=== PATIENT | female | born 1980 | race Caucasian/White ===

== ENCOUNTER → 2016-08-15 | Outpatient (CLI) | payer BC ==
[~2016-08-15] MED LIST: ADVIN50/60 INH; BSP/10 PO; CETI10TA84 PO; CIPR-255 PO; CRY28 PO; ERGO1CAP41 PO; ESCI1TAB10 PO; FLUT0.15 NAE; IPRA1AER2 INH; LEVOXYL PO; MOME50SP5; PHEN1CAP PO; PRT/40 PO; ROSU10TA24 PO; SNG10 PO; SULF800T23 PO
== END | disposition home or self-care (01) ==
LOC: C.PAPS 11:37
PROVIDERS: ATTEND Obstetrics & Gynecology
DX: Z01.419 Encounter for gynecological examination (general) (routine) without abnormal findings (principal)

== ENCOUNTER 2016-12-08 13:08 | Emergency (ER) | payer BC ==
[~2016-12-08] VITALS: Ht 172.7 cm; Wt 113.0 kg
[~2016-12-08 13:08] MED LIST changes: -ADVIN50/60 INH; -BSP/10 PO; -CETI10TA84 PO; -CIPR-255 PO; -CRY28 PO; -ERGO1CAP41 PO; -ESCI1TAB10 PO; -FLUT0.15 NAE; -IPRA1AER2 INH; -LEVOXYL PO; -PRT/40 PO; -ROSU10TA24 PO; -SNG10 PO; -SULF800T23 PO
[2016-12-08 13:17] VITALS: TEMP 36.7; Ht 172.7 cm; Wt 113.0 kg
[2016-12-08] MEDS ORDERED: ONDANSETRON INJ 2 MG/ML 2 ML VIAL IV STA (14:11)
[2016-12-08] MEDS ORDERED: KETOROLAC TROMETHAMINE 30 MG/ML VIAL IV STA (14:11)
[2016-12-08] MEDS ORDERED: SODIUM CHLORIDE 0.9% 1000ML 500 ML IV STA (14:11)
[2016-12-08 14:47] LABS: BASO % 0.4 %; BASO ABS # 0.03 K/uL (0-0.2); COMPLETE YES; EOS % 1.4 %; HEMATOCRIT 40.5 % (37-47); IG% 0.2 %; LYMPH % 21.6 %; LYMPH ABS # 1.74 K/uL (1.2-3.4); MEAN CELL VOLUME 87.9 fL (80-100); MEAN CORPUSCULAR HGB CONC 31.9 g/dl (32-36); MEAN PLATELET VOLUME 8.7 fL (7.4-10.4); MONO % 8.6 %; NEUT % 67.8 %; PLATELET COUNT 395 K/uL (130-400); RED BLOOD COUNT 4.61 M/uL (4.2-5.4); WHITE BLOOD COUNT 8.05 K/uL (4.8-10.8)
--- NOTE | 2016-12-08 14:49 | DIAGNOSTIC IMAGING REPORT ---
CHEST ONE VIEW PORTABLE CLINICAL HISTORY: ABDOMINAL PAIN/GI COMPARISON STUDY: No previous studies for comparison. FINDINGS: The bones soft tissues and hemidiaphragms are normal. The cardiomediastinal silhouette is normal. The lungs are clear. The pulmonary vasculature is normal. IMPRESSION: Negative chest. Electronically signed by: Manjit Armas M.D. 12/08/2016 2:47 PM Dictated Date/Time: 12/08/2016 2:47 PM
[2016-12-08 14:53] LABS: URINE APPEARANCE CLOUDY (CLEAR); URINE COLOR DK YELLOW; URINE EPITHELIAL CELL AUTO >30 /lpf (0-5); URINE NITRITE NEG (NEG); URINE SPECIFIC GRAVITY 1.032 (1.000-1.030); UROBILINOGEN NEG (NEG); ZZUR CULT IF INDIC CLEAN CATCH YES
[2016-12-08 15:01] LABS: MANUAL MICROSCOPIC REQUIRED? NO; REVIEW REQ? YES; URINE BILIRUBIN NEG (NEG)
[2016-12-08 15:09] LABS: BUN/CREATININE RATIO 9.6 (10-20); CALCIUM 8.7 mg/dl (8.5-10.1); CREATININE 1.1 mg/dl (0.60-1.20); POTASSIUM 3.3 mmol/L (3.5-5.1)
[2016-12-08 15:12] LABS: ALB/GLOB RATIO 0.8 (0.9-2)
[2016-12-08 15:13] LABS: PREG INTERNAL NEGATIVE QC NEG CLEAR BACKGROUND; PREG INTERNAL POSITIVE QC POS CONTROL LINE
[2016-12-08] MEDS ORDERED: FLUT0.15 NAE (15:23)
[2016-12-08] MEDS ORDERED: LEVOXYL PO (15:23)
[2016-12-08] MEDS ORDERED: ROSU10TA24 PO (15:26)
[2016-12-08] MEDS ORDERED: CRY28 PO (15:26)
[2016-12-08] MEDS ORDERED: SNG10 PO (15:26)
[2016-12-08] MEDS ORDERED: ADVIN50/60 INH (15:26)
[2016-12-08] MEDS ORDERED: ERGO500011 PO (15:26)
[2016-12-08] MEDS ORDERED: BSP/10 PO (15:26)
--- NOTE | 2016-12-08 16:01 | DIAGNOSTIC IMAGING REPORT ---
RENAL ULTRASOUND HISTORY: Flank pain kidney pain right COMPARISON: None. FINDINGS: Right kidney: Maximum dimension 10.8 cm. Normal corticomedullary differentiation and cortical thickness. Left kidney: Maximum dimension 9.9 cm. Normal corticomedullary differentiation and cortical thickness. Bladder: No bladder wall thickening. The bilateral ureteral jets were identified. IMPRESSION: Normal renal ultrasound. Electronically signed by: Manjit Armas M.D. 12/08/2016 3:59 PM Dictated Date/Time: 12/08/2016 3:59 PM
--- NOTE | 2016-12-08 16:02 | DIAGNOSTIC IMAGING REPORT ---
ULTRASOUND OF THE PELVIS CLINICAL HISTORY: Right pelvic pain. COMPARISON STUDY: Pelvic ultrasound dated 08/15/2014. TECHNIQUE: Real-time, grayscale, and color flow sonography of the pelvis is performed both transabdominally and endovaginally. Images are reviewed in the transverse and longitudinal planes. FINDINGS: Uterus: The retroverted uterus is normal in size and echotexture, measuring 8.1 x 5.5 x 4.9 cm. Trace fluid is present within the endocervical canal. A Nabothian cyst is incidentally noted. Endometrium: The endometrium is normal in appearance, and the endometrial stripe is normal in thickness measuring up to 0.1 cm. Ovaries: The ovaries were not visualized on the transabdominal or endovaginal imaging. Pelvis: There is no free fluid in the cul-de-sac. No concerning adnexal lesion is seen. IMPRESSION: 1. The retroverted uterus is normal in appearance. 2. The ovaries were not visualized. No adnexal lesion is seen. Electronically signed by: Zhou Ridley M.D. 12/08/2016 4:01 PM Dictated Date/Time: 12/08/2016 3:59 PM
[2016-12-08] MEDS ORDERED: CIPROFLOXACIN 500 MG TAB PO STA (16:07)
[2016-12-08] MEDS ORDERED: CIPR-255 PO (16:52)
[2016-12-08] MEDS ORDERED: ALBUTEROL HFA 8 GM INHALER INH ONE (17:15)
[2016-12-08] MEDS ORDERED: SULF800T23 PO (17:16)
[2016-12-08 17:31] VITALS: BP 120/60
[2016-12-08 17:43] VITALS: PULSE 85; O2SAT 100
--- NOTE | 2016-12-08 17:48 | EMERGENCY ROOM VISIT NOTE ---
History Report prepared by Emilie: Javier Zhang Under the Supervision of: Dr. Zhou Ware M.D. First contact with patient: 14:07 Chief Complaint: ABDOMINAL PAIN Stated Complaint: PAIN ON RT SIDE-RADIATES TO BACK W/CHEST TIGHTNESS History of Present Illness The patient is a 36 year old female who presents to the Emergency Room with complaints of worsening "stabbing" right groin pain beginning three days ago. She states that her pain has begun to move into her right lower back and right lower abdomen. She has a history of kidney stones, asthma, endometriosis, ovarian cysts and kidney infections. The patient also complains of diffuse itchiness, shortness of breath and chest "tightness". She states that her pain has been worsening each time she eats. She rates her pain as a 7/10 in severity. The patient denies any diarrhea, fever, cough, urinary symptoms, or vomiting. She has a history of similar symptoms, and was told by her PCP that she likely had "the start of appendicitis", but received no intervention at the time. She has a history of a cholecystectomy. Source of History: patient Onset: Three days ago Position: other (right groin) Symptom Intensity: 7/10 Quality: stabbing Timing: worsening Modifying Factors (Worsening): eating Associated Symptoms: + chest pain ("tightness"), + SOB, + abdominal pain ( right lower), + back pain (right lower), No fevers, No cough, No vomiting, No diarrhea, No urinary symptoms Note: The patient also complains of diffuse itchiness. Review of Systems See HPI for pertinent positives & negatives. A total of 10 systems reviewed and were otherwise negative. Past Medical & Surgical Medical Problems: (1) Abnormal uterine bleeding (AUB) (2) Anemia (3) Asthma (4) Endometriosis (5) Kidney infection (6) Kidney stone (7) Ovarian cyst Family History No pertinent family history stated. Social History Smoking Status: Never Smoker Housing Status: lives with family Current/Historical Medications Scheduled Buspirone HCl (Buspirone HCl), 10 MG PO DAILY Cetirizine (Zyrtec), 10 MG PO DAILY Ciprofloxacin Hcl (Cipro), 500 MG PO BID Ergocalciferol (Vitamin D 66992 Unit), 1 CAP PO MONTHLY Escitalopram Oxalate (Lexapro), 20 MG PO DAILY Ethinyl Estradiol/Norgestrel (Cryselle-28), 1 TAB PO DAILY Fluticasone Prop/Salmeterol (Advair Diskus 500/50 60 Dose), 1 PUFF INH BID Fluticasone Propionate (Nasal) (Flonase Allergy Relief), 1 SPRAY LANEY BID Montelukast Sod (Montelukast Sodium), 10 MG PO DAILY Pantoprazole (Pantoprazole Sodium), 40 MG PO DAILY Rosuvastatin Calcium (Rosuvastatin Calcium), 10 MG PO DAILY Sulfa/Trimethoprim (Bactrim Ds 800MG/160MG), 1 TAB PO BID [Levoxyl], 50 MCG PO DAILY Scheduled PRN Ipratropium-Albuterol (Combivent Respimat), 1 PUFFS INH QID PRN for Wheezing Allergies Coded Allergies: Metoclopramide (Verified Allergy, Intermediate, anxious, 08/15/14) Acetaminophen (Verified Allergy, Unknown, throat swelling, 08/15/14) Amoxicillin (Verified Allergy, Unknown, throat swelling, 08/15/14) Hydrocodone (Verified Allergy, Unknown, throat swelling, 08/15/14) Morphine (Verified Allergy, Unknown, anxious,throat swelling,hives, ) Physical Exam Vital Signs Date Time Temp Pulse Resp B/P (MAP) Pulse Ox O2 Delivery O2 Flow Rate FiO2 12/08/16 17:43 85 100 12/08/16 17:31 120/60 12/08/16 17:28 84 20 100 12/08/16 17:13 89 24 97 12/08/16 17:01 104/78 12/08/16 16:58 80 19 12/08/16 16:43 92 18 12/08/16 16:31 104/64 12/08/16 16:28 86 17 12/08/16 16:13 82 22 99 12/08/16 16:01 122/76 12/08/16 15:59 115/80 12/08/16 15:14 79 18 110/71 100 Room Air 12/08/16 15:13 80 28 100 12/08/16 15:08 78 21 100 12/08/16 15:01 110/71 12/08/16 15:00 78 12/08/16 14:50 122/78 12/08/16 13:17 36.7 93 18 138/75 99 Room Air Physical Exam GENERAL: Patient is in no acute distress. HEENT: No acute trauma, normocephalic atraumatic, mucous membranes moist, no nasal congestion, no scleral icterus. NECK: No stridor, no adenopathy, no meningismus, trachea is midline. LUNGS: Clear to auscultation bilaterally, no wheeze, no rhonchi, breath sounds equal. HEART: Without murmurs gallops or rubs, regular rate and rhythm. ABDOMEN: Soft, tender along the entire right side, bowel sounds positive, no hernias, no peritonitis. BACK: Right flank discomfort with percussion. EXTREMITIES: No cyanosis or edema, full range of motion of all the joints without pain or difficulty, no signs for acute trauma. NEUROLOGIC: Oriented x 3, no acute motor or sensory deficits, no focal weakness. SKIN: No rash, no jaundice, no diaphoresis. Medical Decision & Procedures ER Provider Diagnostic Interpretation: Radiology results as stated below per my review and radiologist interpretation: RENAL ULTRASOUND FINDINGS: Right kidney: Maximum dimension 10.8 cm. Normal corticomedullary differentiation and cortical thickness. Left kidney: Maximum dimension 9.9 cm. Normal corticomedullary differentiation and cortical thickness. Bladder: No bladder wall thickening. The bilateral ureteral jets were identified. IMPRESSION: Normal renal ultrasound. Electronically signed by: Manjit Armas M.D. ULTRASOUND OF THE PELVIS FINDINGS: Uterus: The retroverted uterus is normal in size and echotexture, measuring 8.1 x 5.5 x 4.9 cm. Trace fluid is present within the endocervical canal. A Nabothian cyst is incidentally noted. Endometrium: The endometrium is normal in appearance, and the endometrial stripe is normal in thickness measuring up to 0.1 cm. Ovaries: The ovaries were not visualized on the transabdominal or endovaginal imaging. Pelvis: There is no free fluid in the cul-de-sac. No concerning adnexal lesion is seen. IMPRESSION: 1. The retroverted uterus is normal in appearance. 2. The ovaries were not visualized. No adnexal lesion is seen. Electronically signed by: Zhou Ridley M.D. ULTRASOUND OF THE PELVIS FINDINGS: Uterus: The retroverted uterus is normal in size and echotexture, measuring 8.1 x 5.5 x 4.9 cm. Trace fluid is present within the endocervical canal. A Nabothian cyst is incidentally noted. Endometrium: The endometrium is normal in appearance, and the endometrial stripe is normal in thickness measuring up to 0.1 cm. Ovaries: The ovaries were not visualized on the transabdominal or endovaginal imaging. Pelvis: There is no free fluid in the cul-de-sac. No concerning adnexal lesion is seen. IMPRESSION: 1. The retroverted uterus is normal in appearance. 2. The ovaries were not visualized. No adnexal lesion is seen. Electronically signed by: Zhou Ridley M.D. CHEST ONE VIEW PORTABLE FINDINGS: The bones soft tissues and hemidiaphragms are normal. The cardiomediastinal silhouette is normal. The lungs are clear. The pulmonary vasculature is normal. IMPRESSION: Negative chest. Electronically signed by: Manjit Armas M.D. Laboratory Results 12/08/16 14:30 Red Blood Count 4.61, Mean Corpuscular Volume 87.9, Mean Corpuscular Hemoglobin 28.0, Mean Corpuscular Hemoglobin Concent 31.9, Mean Platelet Volume 8.7, Neutrophils (%) (Auto) 67.8, Lymphocytes (%) (Auto) 21.6, Monocytes (%) (Auto) 8.6, Eosinophils (%) (Auto) 1.4, Basophils (%) (Auto) 0.4, Neutrophils # (Auto) 5.46, Lymphocytes # (Auto) 1.74, Monocytes # (Auto) 0.69, Eosinophils # (Auto) 0.11, Basophils # (Auto) 0.03 12/08/16 14:30 Test 12/08/16 14:30 White Blood Count 8.05 K/uL (4.8-10.8) Red Blood Count 4.61 M/uL (4.2-5.4) Hemoglobin 12.9 g/dL (12.0-16.0) Hematocrit 40.5 % (37-47) Mean Corpuscular Volume 87.9 fL (80-100) Mean Corpuscular Hemoglobin 28.0 pg (25-34) Mean Corpuscular Hemoglobin Concent 31.9 g/dl (32-36) Platelet Count 395 K/uL (130-400) Mean Platelet Volume 8.7 fL (7.4-10.4) Neutrophils (%) (Auto) 67.8 % Lymphocytes (%) (Auto) 21.6 % Monocytes (%) (Auto) 8.6 % Eosinophils (%) (Auto) 1.4 % Basophils (%) (Auto) 0.4 % Neutrophils # (Auto) 5.46 K/uL (1.4-6.5) Lymphocytes # (Auto) 1.74 K/uL (1.2-3.4) Monocytes # (Auto) 0.69 K/uL (0.11-0.59) Eosinophils # (Auto) 0.11 K/uL (0-0.5) Basophils # (Auto) 0.03 K/uL (0-0.2) RDW Standard Deviation 43.9 fL (36.4-46.3) RDW Coefficient of Variation 13.8 % (11.5-14.5) Immature Granulocyte % (Auto) 0.2 % Immature Granulocyte # (Auto) 0.02 K/uL (0.00-0.02) Urine Color DK YELLOW Urine Appearance CLOUDY (CLEAR) Urine pH 6.0 (4.5-7.5) Urine Specific [place] 1.032 (1.000-1.030) Urine Protein NEG (NEG) Urine Glucose (UA) NEG (NEG) Urine Ketones TRACE (NEG) Urine Occult Blood NEG (NEG) Urine Nitrite NEG (NEG) Urine Bilirubin NEG (NEG) Urine Urobilinogen NEG (NEG) Urine Leukocyte Esterase MODERATE (NEG) Urine WBC (Auto) 10-30 /hpf (0-5) Urine RBC (Auto) 0-4 /hpf (0-4) Urine Hyaline Casts (Auto) 0 /lpf (0-5) Urine Epithelial Cells (Auto) >30 /lpf (0-5) Urine Bacteria (Auto) 2+ (NEG) Urine Renal Epithelial Cells /lpf (0-5) Urine Crystals CALCIUM OXALATE (NONE Urine Pathogenic Casts /lpf (0) Anion Gap 8.0 mmol/L (3-11) Est Creatinine Clear Calc Drug Dose 94.1 ml/min Estimated GFR () 75.3 Estimated GFR (Non- 65.0 BUN/Creatinine Ratio 9.6 (10-20) Calcium Level 8.7 mg/dl (8.5-10.1) Total Bilirubin 0.3 mg/dl (0.2-1) Aspartate Amino Transf (AST/SGOT) 18 U/L (15-37) Alanine Aminotransferase (ALT/SGPT) 23 U/L (12-78) Alkaline Phosphatase 82 U/L (45-117) Total Protein 7.2 gm/dl (6.4-8.2) Albumin 3.2 gm/dl (3.4-5.0) Globulin 4.0 gm/dl (2.5-4.0) Albumin/Globulin Ratio 0.8 (0.9-2) Lipase 235 U/L (73-393) Human Chorionic Gonadotropin, Qual NEG (NEG) Laboratory results reviewed by me. Medications Administered Medications (Trade) Dose Ordered Sig/Cady Route Start Time Stop Time Status Last Admin Dose Admin Sodium Chloride 500 ml @ 999 mls/hr Q31M STAT IV 12/08/16 14:11 12/08/16 14:41 DC 12/08/16 14:11 999 MLS/HR Ondansetron HCl (Zofran Inj) 4 mg NOW STAT IV 12/08/16 14:11 12/08/16 14:18 DC 12/08/16 14:43 4 MG Ketorolac Tromethamine (Toradol Inj) 30 mg NOW STAT IV 12/08/16 14:11 12/08/16 14:18 DC 12/08/16 14:46 30 MG Ciprofloxacin (Cipro Tab) 500 mg NOW STAT PO 12/08/16 16:07 12/08/16 16:08 DC 12/08/16 16:17 500 MG Albuterol (Ventolin Hfa Inhaler) 3 puffs NOW ONCE INH 12/08/16 17:15 12/08/16 17:16 DC 12/08/16 17:15 3 PUFFS ED Course 1410: The patient was evaluated in room B12B. A complete history and physical exam was performed. 1411: Ordered Toradol Inj 30 mg IV, Zofran Inj 4 mg IV, Sodium Chloride 500 ml @ 999 mls/hr IV. 1607: Ordered Cipro Tab 500 mg PO. 1642: Reevaluated the patient. Discussed results and discharge instructions: she verbalized understanding and agreement. The patient will be discharged. 1715: Ordered Ventolin Hfa Inhaler 3 puffs INH. The patient is ready for discharge. Medical Decision The patient is a 36 year old female who presents to the ED with complaints of right groin and back pain. Differential diagnoses considered include renal colic, pyelonephritis, UTI, renal failure, ovarian cyst, appendicitis, hernia, musculoskeletal pain, and pneumonia. Blood Pressure Screening: Patient was found to have normal blood pressure on screening and does not require follow-up. Medication Reconciliation: I attest that I have personally reviewed the patient' s current medication list. There is no leukocytosis or concerning anemia. No significant electrolyte abnormality, kidney failure, hepatitis or pancreatitis. Chest film does not show pneumonia or free air. There was no CHF. Pelvic ultrasound does not show any pelvic mass. Renal ultrasound shows no hydronephrosis. Urinalysis shows possible infection versus contamination. Urine culture is pending. testing is negative. The patient received IV Toradol, IV saline, oral Cipro and IV Zofran. She was given albuterol via [facility]. The patient may have a pyelonephritis. Certainly, she could even be passing a very small ureteral stone. She looks well, she is not toxic. She is going to be discharged on a course of antibiotic for the possibility of pyelonephritis. Upon discharge, she questioned that she could be allergic to Cipro. I then sent a prescription of Bactrim to her pharmacy in place of the Cipro. The patient was encouraged to return for worsening or escalating symptoms. I discussed the possibility of appendicitis with her, she will see the nearest ER or our ER if things are worsening. Impression Primary Impression: Right flank pain Additional Impression: UTI (urinary tract infection) Scribe Attestation The scribe's documentation has been prepared under my direction and personally reviewed by me in its entirety. I confirm that the note above accurately reflects all work, treatment, procedures, and medical decision making performed by me. Departure Information Dispostion Home / Self-Care Prescriptions Sulfa/Trimethoprim (Bactrim Ds 800MG/160MG) Tab 1 TAB PO BID, #20 TAB Prov: Zhou Ware M.D. 12/08/16 Ciprofloxacin Hcl (CIPRO) 500 Mg Tab 500 MG PO BID, #20 TAB Prov: Zhou Ware M.D. 12/08/16 Referrals Shruthi Calwdell M.D. (PCP) Forms Call Back Authorization, HOME CARE DOCUMENTATION FORM, IMPORTANT VISIT INFORMATION Patient Instructions My [facility] Additional Instructions cipro 2x per day for 10 days stay well hydrated motrin for pain rest return or see nearest ER for worsening symptoms, fever, vomiting imaging was all ok today as discussed Problem Qualifiers
[2016-12-08] MEDS ORDERED: PANT40TA2 PO (18:48)
[2016-12-08] MEDS ORDERED: CETI10TA84 PO (18:48)
[2016-12-08] MEDS ORDERED: IPRA1AER2 INH (18:48)
[2016-12-08] MEDS ORDERED: ESCI1TAB10 PO (18:48)
== END 2016-12-08 17:45 | disposition home or self-care (01) ==
LOC: C.EDB 13:10
DX: R10.9 Unspecified abdominal pain (principal); N39.0 Urinary tract infection, site not specified; Z87.442 Personal history of urinary calculi; J45.909 Unspecified asthma, uncomplicated; N80.9 Endometriosis, unspecified; Z79.899 Other long term (current) drug therapy